=== PATIENT | female | born 1945 | race Caucasian/White ===

== ENCOUNTER → 2017-02-07 | Outpatient (CLI) | payer BC ==
[~2017-02-07] MED LIST: ASPI81TA28 PO; ATOR-24 PO; CALCTAB5 PO; CHOL100010 PO; GLUC10007 PO; HYDR25TA5 PO; LOSA50TA6 PO; MULT-506 PO; OMEG10007 PO
--- NOTE | 2017-02-07 14:02 | MAMMOGRAPHY REPORT ---
BILATERAL DIGITAL SCREENING MAMMOGRAM WITH CAD: 02/07/2017 CLINICAL HISTORY: Routine screening. Patient has no complaints. TECHNIQUE: Current study was also evaluated with a Computer Aided Detection (CAD) system. Bilateral CC and MLO views were obtained. COMPARISON: Comparison is made to exams dated: 02/02/2016 mammogram, 01/27/2015 mammogram, 01/25/2014 ma mmogram, 01/21/2013 mammogram, 01/21/2012 mammogram, and 01/17/2011 mammogram - [facility] nter. BREAST COMPOSITION: The tissue of both breasts is heterogeneously dense, which may obscure small mas ses. FINDINGS: There are possible increasing grouped calcifications in the right superior breast at appro ximately 12:00 posteriorly, for which spot magnification views are recommended for further evaluation . The remainder of both breasts are stable compared to prior exams, without suspicious masses, calcific ations, or areas of architectural distortion noted. Other grouped benign-appearing calcifications in the right 6:00 breast are stable compared to prior exams. IMPRESSION: ACR BI-RADS CATEGORY 0: INCOMPLETE EVALUATION: NEED ADDITIONAL IMAGING EVALUATION Right 12:00 breast calcifications, for which additional imaging evaluation is recommended. The patie nt will be called to schedule an appointment. Approximately 10% of breast cancers are not detected with mammography. A negative mammographic report should not delay biopsy if a clinically suggestive mass is present. Saida Hardin M.D. /:02/07/2017 09:31:11 Fingerer: Sandra Main, [facility] letter sent: Addl Imaging 0 BI-RADS Code: ACR BI-RADS Category 0: Incomplete Evaluation: Need Additional Imaging Evaluation
== END | disposition home or self-care (01) ==
LOC: C.MAMM 08:54
PROVIDERS: ATTEND Obstetrics & Gynecology
DX: Z12.31 Encounter for screening mammogram for malignant neoplasm of breast (principal)

== ENCOUNTER → 2017-02-14 | Outpatient (CLI) | payer BC ==
--- NOTE | 2017-02-14 14:07 | MAMMOGRAPHY REPORT ---
UNILATERAL RIGHT DIGITAL DIAGNOSTIC MAMMOGRAM: 02/14/2017 CLINICAL HISTORY: Callback from screening mammogram for right breast calcifications. TECHNIQUE: Spot magnification right cc and ML views were obtained. COMPARISON: Comparison is made to exams dated: 02/07/2017 mammogram, 02/02/2016 mammogram, 01/27/2015 ma mmogram, 01/25/2014 mammogram, 01/21/2013 mammogram, and 01/21/2012 mammogram - [facility] nter. BREAST COMPOSITION: The tissue of the right breast is heterogeneously dense, which may obscure small masses. FINDINGS: There is a small 4 mm cluster of faint punctate and amorphous calcifications in the right 12:00 breast, which appears increased compared to prior exams. Given the interval increase, the calc ifications are indeterminate and stereotactic biopsy is recommended for further evaluation. Additionally, there is a small 3 mm cluster of calcifications in the right central/6:00 breast, which is likely not significantly changed compared to prior exams when accounting for differences in mammo graphic technique, with calcifications seen in this region dating back to at least 2008 and 2009 exam s. Another small very faint 4 mm cluster of calcifications is seen within the right 6:00 breast post eriorly, which is likely also not significantly changed although more conspicuous on the current spot magnification views. Pending benign pathology results of right breast stereotactic biopsy, these 2 clusters can be followed in 6 months. IMPRESSION: ACR BI-RADS CATEGORY 4: SUSPICIOUS 1. Small 4 mm cluster of calcifications in the right 12:00 breast is increased compared to prior exa ms and is therefore indeterminate. Stereotactic biopsy is recommended for further evaluation. 2. Two other small clusters of calcifications in the right central/6:00 breast are likely stable comp ared to prior exams and are probably benign. Pending benign pathology results of the stereotactic bi opsy, recommend follow-up diagnostic mammograms of the right breast in 6 months to confirm stability of the other clustered calcifications on spot magnification views. A phone call was made to the physician's office to confirm faxed results were received. The patient has been verbally notified of the results. She tentatively scheduled the biopsy before leaving the [facility]. Approximately 10% of breast cancers are not detected with mammography. A negative mammographic report should not delay biopsy if a clinically suggestive mass is present. Saida Hardin M.D. /:02/14/2017 09:26:50 [employer] Supervisor: Sandra Boswell RT(R)(M), [facility] letter sent: Abnormal 4/5 BI-RADS Code: ACR BI-RADS Category 4: Suspicious
== END | disposition home or self-care (01) ==
LOC: C.MAMM 08:54
PROVIDERS: ATTEND Obstetrics & Gynecology
DX: R92.1 Mammographic calcification found on diagnostic imaging of breast (principal)

== ENCOUNTER → 2017-02-22 | Outpatient (CLI) | payer BC ==
--- NOTE | 2017-02-22 13:22 | Discharge Instructions ---
Discharge Instructions Procedure Procedure Date: Feb 22, 2017. Reason for visit: Right Calcifications. Discharge Discharge Date: Feb 22, 2017. Discharge Diagnosis: status post breast biopsy Instructions Activity Recommendations: Additional Limitations (see below) Return to School/Work: no limitations Recommended Home Diet: No Limitations Provider Instructions: ACTIVITY RECOMMENDATIONS: * No lifting, pushing, pulling or exercising the affected side for three days. RETURN TO SCHOOL/WORK: * You may return to work/school after the procedure, but do not perform any strenuous activities for 24 to 48 hours. MEDICATIONS: * Tylenol (two 325 mg) every four to six hours if needed for mild pain (if not allergic to Tylenol). DIET: * Resume previous diet. SPECIAL CARE INSTRUCTIONS: * Keep biopsy site dry for 24 hours. May shower after 24 hours, but do not soak (bathe) incision. * May remove Tegaderm (plastic patch) tomorrow AFTER showering. * Leave the steri-strips on for one week. Allow the steri-strips to fall off by themselves. If not off after one week, you may remove them. You may place a Bandaid crosswise over the strips, if desired. * Apply ice 10 minutes on and 10 minutes off as needed. * Wear a bra at bedtime to sleep more comfortably for 2-3 days. * Your referring physician should have the results after approximately 5 to 7 business days. * Call for unusual bleeding, fever, drainage, etc or if you have any questions call during normal business hours or after hours call Dr Hardin, [phone]. FOLLOW UP VISIT: Follow-up with Referring Physician as scheduled. Allergies Coded Allergies: Simvastatin (Verified Allergy, Intermediate, ., 08/10/13) COUGH AND TICKLE IN THROAT Lisinopril (Verified Allergy, Unknown, ., 09/07/14) COUGH AND TICKLE IN THROAT [place] Recommendations: Call your doctor if: * Temperature above 101 degrees * Pain not relieved by pain medicine ordered * There is increased drainage or redness from any incision * You have any unanswered questions or concerns. Your Doctors Instructions noted above were prepared by provider Saida Hardin. Patient Signature Section: Patient Instructions Signature Page Rama Antonio Patient (or Guardian) Signature/Date: I have read and understand the instructions given to me by my caregivers. Caregiver/RN/Doctor Signature/Date: The above-named patient and/or guardian has received patient instructions on this date. + Original Patient Signature Page (only) stays with chart. Please make copy for patient.
--- NOTE | 2017-02-22 13:36 | MAMMOGRAPHY REPORT ---
THIS REPORT HAS BEEN AMENDED. STEREOTACTIC GUIDED BIOPSY RIGHT BREAST: 02/22/2017 CLINICAL HISTORY: Indeterminate calcifications in the right 12 o'clock breast. PATIENT CONSENT: The procedure, risks, benefits, and alternatives of stereotactic biopsy with clip pl acement were discussed with the patient, and verbal and written consent was obtained. A timeout was performed immediately prior to the procedure. PROCEDURE DESCRIPTION: With stereotactic guidance, aseptic technique, and lidocaine as a local anesth etic (1% lidocaine to anesthetize the skin and 1% lidocaine with epinephrine to anesthetize the deepe r tissues), the area of concern was sampled multiple times with a 9-gauge vacuum-assisted biopsy need le (Suros Eviva petite). The path of approach was lateral. The specimen radiograph demonstrates a f ew calcifications to be present in the samples; the samples containing calcifications (labeled "A") w ere from the samples without calcifications (labeled "B "). A metallic marker clip was betsey travis at the biopsy site. This was confirmed on postprocedure mammograms. Direct pressure was applied at the biopsy site and hemostasis was readily achieved. The patient tolerated the procedure without complication. She was given wound care instructions. COMPARISON: Comparison is made to exams dated: 02/14/2017 mammogram, 02/02/2016 mammogram, 01/25/2014 ma mmogram, 01/21/2013 mammogram, 01/21/2012 mammogram, and 02/07/2017 mammogram - [facility] nter. IMPRESSION: STEREOTACTIC GUIDED BIOPSY Stereotactic biopsy of indeterminate calcifications in the right 12:00 breast, with clip placement. The patient will receive pathology results from her referring provider. Pending benign pathology res ults, recommend follow-up diagnostic mammograms of the right breast in 6 months to evaluate other clu sters of calcifications. Saida Hardin M.D. ah/:02/22/2017 13:25:13 Vc++ Developer: Rama AMIN)(Madan), [facility] AMENDMENT: 02/27/2017 Saida Hardin M.D. Pathology results from right breast stereotactic biopsy were reviewed on 02/27/2017. 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 The pathology is concordant with the imaging findings. Given the pr esence of atypia, surgical excision is recommended. Additionally, 2 other clusters of calcifications were seen within the right central and 6:00 breast. Given the new diagnosis of atypia, sampling of the other 2 clusters is recommended, either with stereotactic biopsy or surgical excision (at the shannan e of surgery for the right 12:00 calcifications). Further recommendations were discussed with Dr. Ramirez's nurse on 02/27/2017.
--- NOTE | 2017-02-22 16:09 | MAMMOGRAPHY REPORT ---
UNILATERAL RIGHT DIGITAL DIAGNOSTIC MAMMOGRAM: 02/22/2017 CLINICAL HISTORY: Status post right breast stereotactic biopsy. TECHNIQUE: Right CC, ML, and LM views were obtained. COMPARISON: Comparison is made to exams dated: 02/14/2017 mammogram, 02/07/2017 mammogram, 02/02/2016 ma mmogram, 01/25/2014 mammogram, 01/27/2015 mammogram, and 01/21/2013 mammogram - [facility] nter. BREAST COMPOSITION: The tissue of the right breast is heterogeneously dense, which may obscure small masses. FINDINGS: A right LM view was obtained for biopsy planning purposes. Postprocedural right ML and cc views were obtained, which shows a new biopsy marker clip in the right breast status post stereotact ic biopsy of right breast calcifications. There is lateral migration of the biopsy marker clip from the biopsy site approximately 3 cm, likely due to accordion effect. No residual calcifications are s een at the biopsy site. No significant postbiopsy hematoma is seen. IMPRESSION: POST PROCEDURE IMAGING FOR MARKER PLACEMENT New biopsy marker clip status post right breast stereotactic biopsy. Pathology results are pending. Approximately 10% of breast cancers are not detected with mammography. A negative mammographic report should not delay biopsy if a clinically suggestive mass is present. Saida Hardin M.D. /:02/22/2017 13:34:21 [employer] Professor: Rama AMIN)(M), [facility] BI-RADS Code: Post Procedure Imaging For Marker Placement
== END | disposition home or self-care (01) ==
LOC: C.MAMM 12:24
PROVIDERS: ATTEND Obstetrics & Gynecology
DX: R92.0 Mammographic microcalcification found on diagnostic imaging of breast (principal); D24.1 Benign neoplasm of right breast; N60.81 Other benign mammary dysplasias of right breast; N60.21 Fibroadenosis of right breast

== ENCOUNTER → 2017-03-25 | Outpatient (CLI) | payer BC | END | disposition home or self-care (01) | LOC: C.PAPS 11:21 | PROVIDERS: ATTEND Obstetrics & Gynecology | DX: Z01.419 Encounter for gynecological examination (general) (routine) without abnormal findings (principal) ==

== ENCOUNTER 2024-12-12 06:24 | Observation (INO) ==
--- NOTE | 2024-12-12 06:58 | Emergency Department Note ---
Impression & Plan Dyspnea, Hypoxia ED Provider Note ED Provider Note NAME: BELTRAN HARTLEY AGE:79 SEX: Female : 1945 ARRIVES VIA: EMS INFORMANT: Patient ED PROVIDER(s): Lauren Valladares DO CHIEF COMPLAINT: Shortness of breath HPI: This is an 79-year-old female who presents emergency department due to shortness of breath. Patient states she gets up overnight to urinate and by the third episode early this morning she was very winded. She states she felt fine the last few days. No recent cough or cold symptoms. She denies fevers or chills, chest pain or pressure, or prior history of similar episodes. She denies asthma, COPD, or prior tobacco abuse. She states no recent leg swelling. No recent change in bowel or bladder function. She does admit to intermittent constipation. She states no cough. No known sick contacts. No recent travel. She states her breathing feels worse with exertion. PAST MEDICAL HISTORY:See Below PAST SURGICAL HISTORY:See Below FAMILY HISTORY:See Below SOCIAL HISTORY:See Below HOME MEDICATIONS:See Below ALLERGIES:See Below VITALS:See Below PHYSICAL EXAMINATION: GENERAL: alert, well appearing, well nourished, no distress, non-toxic EYE EXAM: normal conjunctiva, PERRL and EOM's grossly intact OROPHARYNX: no exudate, no erythema, lips, buccal mucosa, and tongue normal and mucous membranes are moist NECK: supple, no nuchal rigidity, no adenopathy, non-tender LUNGS: Clear to auscultation. Normal chest wall mechanics, no w/r/r HEART: no murmurs, S1 normal and S2 normal ABDOMEN: abdomen soft, non-tender, normo-active bowel sounds, no masses, no rebound or guarding. BACK: Back is symmetrical on inspection and there is no deformity, no midline tenderness, no CVA tenderness. SKIN: no rashes, petechiae, orbruising UPPER EXTREMITIES: upper extremities are grossly normal. FROM, nml pulses b/l. LOWER EXTREMITIES: No pitting edema. FROM, nml pulses b/l. NEURO EXAM: Normal sensorium, cranial nerves II-XII grossly intact, normal speech, no facial droop,nogross weakness of arms, no gross weakness of legs. Gross sensation intact. No ataxia. Vital Signs: reviewed and remarkable Differential Diagnosis: pneumonia, bronchitis, COPD/Asthma exacerbation, pneumothorax, pulmonary embolism, congestive heart failure, acute coronary syndrome, as well as others were considered MEDICAL DECISION MAKING: This is a 79-year-old female who presents emergency department due to concern for shortness of breath. Patient was noted to be hypoxic on arrival on room air at 88%, other vital signs reassuring. Labs drawn and sent, IV established, EKG and CXR performed and interpreted at bedside, and patient placed on telemetry. Patient noted to have a leukocytosis, nasal swab added for viral respiratory panel additionally. Patient noted to have an elevated D-dimer and an additional CT of the chest was added. CT without evidence of PE, pneumonia, pericardial effusion, or obvious pulmonary edema. Patient continued to report dyspnea with any movement and even prolonged conversation and was easily tachypneic. Viral panel negative. No prior cardiac history or pulmonary history. Given unclear etiology of symptoms we discussed the need for further testing. Case discussed with the hospitalist team for additional evaluation and management. Consultation(s): 1002: Discussed with Dr. Ascencio, Ms hospitalist team, for additional evaluation and mgmt. ER Treatment Provided: See below Diagnostics Interpreted By Me: -ECG: Normal sinus at 93, leftward axis, normal intervals, nonspecific ST/T wave changes -Cardiac Monitoring: An order was placed for continuous cardiac monitoring. The monitor shows a rate of 88 with normal sinus rhythm. -Laboratory studies: As stated above and show below. -Imaging studies: X-ray Chest: A single view study of the chest was reviewed and was negative for cardiomegaly, focal infiltrate, effusion, pulmonary edema, or wide mediastinum. Triage Nursing Note Reviewed Prior/Outside Records Reviewed Past Med/Surg History Problem List (Updated 12/13/24 @ 09:59 by Mahogany Ascencio MD) Mitral regurgitation Diastolic heart failure Hypoxia (Acute) Dyspnea (Acute) Nocturia History of breast cancer 2016 Overactive bladder Carpal tunnel syndrome (Acute) Diastolic dysfunction (Acute) Mild aortic sclerosis (Acute) Mitral valve prolapse (Acute) Scoliosis (Acute) JIMBO (acute kidney injury) (Acute) Chest pain (Acute) HTN (hypertension) (Chronic) Medical History History of uterine leiomyoma Osteoarthritis Osteopenia GERD (gastroesophageal reflux disease) History of melanoma Cardiac murmur Hypertension Hyperlipidemia Basal cell carcinoma Surgical History Status post repair of complex wound (~08/2018) right nasal ala wound primary closure- Dr. Nguyen History of cataract surgery History of anesthesia reaction "hyperactive" after colonoscopy History of tonsillectomy History of adenoidectomy Hx of lumpectomy RT, 2016 History of breast biopsy RT History of colonoscopy History of basal cell carcinoma (BCC) excision FACE/BACK History of melanoma excision UPPER ARM Family History Sister Family history of reaction to anesthesia hallucinations Mother Alzheimer disease Family/Other Breast cancer Ovarian cancer Father Coronary heart disease Myocardial infarction Denies family history of Prostate cancer Colorectal cancer Social History Smoking Status: Never smoker Second Hand Exposure: Yes (previous exposure in the workplace); Do You Dip or Chew Tobacco: No; Hx Alcohol Use: Yes Alcohol type: wine Hx Substance Use: No Preferred Language: Armenian Communication Ability: Effective [employer] Worker Required: No Beliefs That Will Affect Care: None Current Living Situation: Alone Current Living Situation Comment: Her own home (1 story) current occupational status: retired Feels Safe at Home: Yes Safety Concerns: Feels Safe At This Time caffeine: Yes Dental Care, Regularly: Yes Seatbelt Use: always Sunscreen Use: Yes Assistive Devices: Glasses Allergies Allergies Allergy/AdvReac Type Severity Reaction Status Date / Time simvastatin Allergy Intermediate TICKLING Verified 12/12/24 08:10 THROAT lisinopril Allergy Unknown TICKLY Verified 12/12/24 08:10 THROAT Home Meds Home Medications Medication Instructions Recorded Confirmed amlodipine 5 mg tablet 5 mg PO QPM 08/12/18 12/12/24 atorvastatin 40 mg tablet 20 mg PO QPM 08/12/18 12/12/24 olmesartan 40 mg tablet 40 mg PO DAILY 11/01/22 12/12/24 calcium carbonate 500 mg PO DAILY 12/12/24 12/12/24 cholecalciferol (vitamin D3) 25 25 mcg PO DAILY 12/12/24 12/12/24 mcg (1,000 unit) tablet (Vitamin D3) multivitamin 1 tab PO DAILY 12/12/24 12/12/24 omega [id number] oil 1,200 mg 1 cap PO DAILY 12/12/24 12/12/24 (144 mg-216 mg) capsule (Fish Oil) Previous Rx's Medication Instructions Recorded vibegron 75 mg tablet (Gemtesa) 75 mg PO DAILY #90 tabs 12/11/24 furosemide 20 mg tablet See Rx Instructions .Route 12/13/24 .COMPLEX #60 tabs potassium chloride 20 mEq oral See Rx Instructions .Route 12/13/24 packet .COMPLEX #60 ea Results & Data (ED) Vital Signs Vital Signs - 24 hr 12/12/24 06:28 12/12/24 06:28 12/12/24 06:30 Temperature 36.4 C L Temperature Source Oral Pulse Rate 90 99 H Pulse Rate from SpO2 Sensor Respiratory Rate 30 H Blood Pressure 155/112 H Blood Pressure Mean 126 Pulse Oximetry 88 L 88 L Oxygen Delivery Method Room Air Oxygen Flow Rate 0 Sepsis Recent Fever Within 48 Hours No Sepsis New/Unexplained Change in Mental Status N/A Sepsis Action Taken by Nursing No Action Required Oxygen Flow Rate - Titration 3 Pulse Oximetry Post Tiitration 93 12/12/24 07:00 12/12/24 07:30 12/12/24 08:00 Temperature Temperature Source Pulse Rate 89 89 Pulse Rate from SpO2 Sensor 88 Respiratory Rate 24 26 H Blood Pressure 139/80 110/81 127/76 Blood Pressure Mean 117 92 93 Pulse Oximetry 94 96 Oxygen Delivery Method Nasal Cannula Nasal Cannula Oxygen Flow Rate 3 3 Sepsis Recent Fever Within 48 Hours Sepsis New/Unexplained Change in Mental Status Sepsis Action Taken by Nursing Oxygen Flow Rate - Titration Pulse Oximetry Post Tiitration 12/12/24 09:03 12/12/24 09:30 Temperature Temperature Source Pulse Rate 84 87 Pulse Rate from SpO2 Sensor 83 89 Respiratory Rate 26 H 28 H Blood Pressure 115/72 111/70 Blood Pressure Mean 86 83 Pulse Oximetry 96 96 Oxygen Delivery Method Nasal Cannula Nasal Cannula Oxygen Flow Rate 3 3 Sepsis Recent Fever Within 48 Hours Sepsis New/Unexplained Change in Mental Status Sepsis Action Taken by Nursing Oxygen Flow Rate - Titration Pulse Oximetry Post Tiitration Laboratory Data 12/13/24 05:45 12/13/24 05:45 Lab Results 12/12/24 12/12/24 12/12/24 Range/Units 06: 06: 07:12 WBC 16.45 H (4.8-10.8) K/ul RBC 4.55 (4.20-5.40) M/uL Hgb 14.0 (12.0-16.0) g/dl Hct 41.5 (37.0-47.0) % MCV 91.2 (80.0-100.0) fL MCH 30.8 (25.0-34.0) pg MCHC 33.7 (32.0-36.0) g/dL RDW Std Deviation 43.8 (36.4-46.3) fL RDW Coeff of Gilma 13.0 (11.5-14.5) % Plt Count 242 (130-400) K/uL MPV 10.8 (9.4-12.4) fL Immature Gran % (Auto) 0.4 % Neut % (Auto) 75.3 % Lymph % (Auto) 16.8 % [place] % (Auto) 4.9 % Eos % (Auto) 2.1 % Baso % (Auto) 0.5 % Neut # (Auto) 12.38 H (1.40-6.50) K/uL Lymph # (Auto) 2.77 (1.20-3.40) K/uL [place] # (Auto) 0.80 H (0.11-0.59) K/uL Eos # (Auto) 0.35 (0.00-0.50) K/uL Baso # (Auto) 0.09 (0.00-0.20) K/uL Immature Gran # (Auto) 0.06 (0.01-0.20) K/uL PT 10.4 (9.0-12.0) Seconds INR 1.0 (0.9-1.1) D-Dimer 1460 H* Cancelled (0-500) ug/L FEU Sodium 140 (136-145) mmol/L Potassium 3.6 (3.5-5.1) mmol/L Chloride 106 (98-107) mmol/L Carbon Dioxide 27 (21-32) mmol/L Anion Gap 7 (3-11) BUN 28 H (6-23) mg/dl Creatinine 0.82 (0.6-1.2) mg/dl Est Cr Clr Drug Dosing 44.5 ml/min eGFR 71.82 BUN/Creatinine Ratio 34.1 H (10-20) Glucose 106 H (70-99(Fasting)) mg/dl Calcium 9.3 (8.6-10.3) mg/dl Magnesium 1.9 (1.7-2.4) mg/dl Total Bilirubin 0.7 (0.2-1.0) mg/dl AST 30 (13-39) U/L ALT 23 (7-52) U/L Alkaline Phosphatase 55 (34-104) U/L Troponin I High Sens 4.1 (0-14) pg/ml Total Protein 6.6 (6.0-8.3) gm/dl Albumin 4.4 (3.4-5.0) gm/dl Globulin 2.2 L (2.5-4.0) gm/dl Albumin/Globulin Ratio 2.0 (0.9-2) Lipase 86 H (11-82) U/L Procalcitonin < 0.02 (0-0.5) ng/ml TSH 4.802 H (0.300-4.500) uIu/ml Free T4 0.84 (0.61-1.60) ng/dl Urine Color Urine Appearance (Clear) Urine pH (4.5-7.5) Ur Specific [place] (1.000-1.030) Urine Protein (Negative) Urine Glucose (UA) (Negative) Urine Ketones (Negative) Urine Blood (Negative) Urine Nitrite (Negative) Urine Bilirubin (Negative) Urine Urobilinogen (Negative) Ur Leukocyte Esterase (Negative) Urine WBC (Auto) (0-5) /hpf Urine RBC (Auto) (0-2) /hpf U Hyaline Cast (Auto) (0-2) /lpf U Epithel Cells (Auto) (0-2) /hpf Urine Bacteria (Auto) (None Seen) Urine Comment Adenovirus (PCR) Not Detected (NotDetected) B. pertussis DNA (PCR) Not Detected (NotDetected) B.parapertussis DNA PCR Not Detected (NotDetected) C. pneumoniae DNA (PCR) Not Detected (NotDetected) Coronavirus OC43 (PCR) Not Detected (NotDetected) Coronavirus HKU1 (PCR) Not Detected (NotDetected) Coronavirus 229E (PCR) Not Detected (NotDetected) SARS-CoV-2 (PCR) Not Detected (NotDetected) Coronavirus NL63 (PCR) Not Detected (NotDetected) Human Metapneumovir PCR Not Detected (NotDetected) Influenza Type A (PCR) Not Detected (NotDetected) Influenza Type B (PCR) Not Detected (NotDetected) M. pneumoniae (PCR) Not Detected (NotDetected) Parainfluenza 1 (PCR) Not Detected (NotDetected) Parainfluenza 2 (PCR) Not Detected (NotDetected) Parainfluenza 3 (PCR) Not Detected (NotDetected) Parainfluenza 4 (PCR) Not Detected (NotDetected) RSV (PCR) Not Detected (NotDetected) Entero/Rhino (PCR) Not Detected (NotDetected) 12/12/24 Range/Units 07:40 WBC (4.8-10.8) K/ul RBC (4.20-5.40) M/uL Hgb (12.0-16.0) g/dl Hct (37.0-47.0) % MCV (80.0-100.0) fL MCH (25.0-34.0) pg MCHC (32.0-36.0) g/dL RDW Std Deviation (36.4-46.3) fL RDW Coeff of Gilma (11.5-14.5) % Plt Count (130-400) K/uL MPV (9.4-12.4) fL Immature Gran % (Auto) % Neut % (Auto) % Lymph % (Auto) % [place] % (Auto) % Eos % (Auto) % Baso % (Auto) % Neut # (Auto) (1.40-6.50) K/uL Lymph # (Auto) (1.20-3.40) K/uL [place] # (Auto) (0.11-0.59) K/uL Eos # (Auto) (0.00-0.50) K/uL Baso # (Auto) (0.00-0.20) K/uL Immature Gran # (Auto) (0.01-0.20) K/uL PT (9.0-12.0) Seconds INR (0.9-1.1) D-Dimer (0-500) ug/L FEU Sodium (136-145) mmol/L Potassium (3.5-5.1) mmol/L Chloride (98-107) mmol/L Carbon Dioxide (21-32) mmol/L Anion Gap (3-11) BUN (6-23) mg/dl Creatinine (0.6-1.2) mg/dl Est Cr Clr Drug Dosing ml/min eGFR BUN/Creatinine Ratio (10-20) Glucose (70-99(Fasting)) mg/dl Calcium (8.6-10.3) mg/dl Magnesium (1.7-2.4) mg/dl Total Bilirubin (0.2-1.0) mg/dl AST (13-39) U/L ALT (7-52) U/L Alkaline Phosphatase (34-104) U/L Troponin I High Sens (0-14) pg/ml Total Protein (6.0-8.3) gm/dl Albumin (3.4-5.0) gm/dl Globulin (2.5-4.0) gm/dl Albumin/Globulin Ratio (0.9-2) Lipase (11-82) U/L Procalcitonin (0-0.5) ng/ml TSH (0.300-4.500) uIu/ml Free T4 (0.61-1.60) ng/dl Urine Color Yellow Urine Appearance Turbid A (Clear) Urine pH 8.0 H (4.5-7.5) Ur Specific [place] 1.011 (1.000-1.030) Urine Protein Negative (Negative) Urine Glucose (UA) Negative (Negative) Urine Ketones Negative (Negative) Urine Blood Negative (Negative) Urine Nitrite Negative (Negative) Urine Bilirubin Negative (Negative) Urine Urobilinogen Negative (Negative) Ur Leukocyte Esterase Negative (Negative) Urine WBC (Auto) 0-5 (0-5) /hpf Urine RBC (Auto) 0-2 (0-2) /hpf U Hyaline Cast (Auto) 0-2 (0-2) /lpf U Epithel Cells (Auto) 0-2 (0-2) /hpf Urine Bacteria (Auto) None Seen (None Seen) Urine Comment Adenovirus (PCR) (NotDetected) B. pertussis DNA (PCR) (NotDetected) B.parapertussis DNA PCR (NotDetected) C. pneumoniae DNA (PCR) (NotDetected) Coronavirus OC43 (PCR) (NotDetected) Coronavirus HKU1 (PCR) (NotDetected) Coronavirus 229E (PCR) (NotDetected) SARS-CoV-2 (PCR) (NotDetected) Coronavirus NL63 (PCR) (NotDetected) Human Metapneumovir PCR (NotDetected) Influenza Type A (PCR) (NotDetected) Influenza Type B (PCR) (NotDetected) M. pneumoniae (PCR) (NotDetected) Parainfluenza 1 (PCR) (NotDetected) Parainfluenza 2 (PCR) (NotDetected) Parainfluenza 3 (PCR) (NotDetected) Parainfluenza 4 (PCR) (NotDetected) RSV (PCR) (NotDetected) Entero/Rhino (PCR) (NotDetected) Administered Medications Acetaminophen (Acetaminophen 325 Mg Tab) 650 mg PO Q4H PRN PRN Reason: pain/fever Stop: 01/11/25 12:42 Last Admin: 12/13/24 08:46 Dose: 650 mg Documented By: DAVID Amlodipine Besylate (Amlodipine Besylate 5 Mg Tab) 5 mg PO QPM ALLIE Stop: 01/11/25 20:59 Last Admin: 12/12/24 20:37 Dose: 5 mg Documented By: LAURA Atorvastatin Calcium (Atorvastatin 20 Mg Tab) 20 mg PO QPM ALLIE Stop: 01/11/25 20:59 Last Admin: 12/12/24 20:37 Dose: 20 mg Documented By: LAURA Losartan Potassium (Losartan Potassium 50 Mg Tab) 100 mg PO DAILY ALLIE Stop: 01/12/25 08:59 Last Admin: 12/13/24 08:47 Dose: 100 mg Documented By: DAVID Vibegron (Vibegron 75 Mg Tab) 75 mg PO DAILY ALLIE Stop: 01/12/25 08:59 Last Admin: 12/13/24 08:47 Dose: 75 mg Documented By: DAVID Discontinued Medications Apixaban (Apixaban 5 Mg Tablet) 10 mg PO BID ALILE Stop: 12/18/24 21:01 Last Admin: 12/13/24 08:47 Dose: 10 mg Documented By: Admin: 12/12/24 20:37 Dose: 10 mg Documented By: Admin: 12/12/24 14:37 Dose: 10 mg Documented By: RRR Furosemide (Furosemide Inj 20 Mg/2 Ml Vial) 20 mg IV ONE ONE Stop: 12/12/24 15:14 Last Admin: 12/12/24 15:46 Dose: 20 mg Documented By: RRR Furosemide (Furosemide Inj 20 Mg/2 Ml Vial) 20 mg IV ONE ONE Stop: 12/13/24 07:26 Last Admin: 12/13/24 08:46 Dose: 20 mg Documented By: [facility] Ioversol (Optiray 320 125ml) 112 ml IV ONCE ONE Stop: 12/12/24 07:35 Last Admin: 12/12/24 07:35 Dose: 112 ml Documented By: BRISEIDA Potassium Chloride (Potassium Chloride Crtab 20 Meq Tabcr) 40 meq PO NOW ONE Stop: 12/12/24 15:14 Last Admin: 12/12/24 15:46 Dose: 40 meq Documented By: RRR Potassium Chloride (Potassium Chloride Crtab 20 Meq Tabcr) 40 meq PO NOW ONE Stop: 12/13/24 07:27 Last Admin: 12/13/24 08:46 Dose: 40 meq Documented By: [facility] Imaging Data Radiologist's Impression: Chest X-Ray 12/12/24 06:49 EXAM: XR chest 1V portable CLINICAL HISTORY: sob. TECHNIQUE: Radiograph of chest was acquired. COMPARISON: None. FINDINGS: Right diaphragmatic hump Cardiomegaly noted. The lungs are clear and well-expanded with no pulmonary infiltrate or pleural effusion. No acute osseous abnormality. IMPRESSION: Right diaphragmatic hump Cardiomegaly noted. Electronically signed by Sanford Gallagher 12-12-2024 08:09 AM Chest CTA 12/12/24 07:25 Technique: Axial computed tomography images were obtained of the chest after the administration of intravenous contrast according to the CT angiogram protocol Findings: There is no definite sign of pulmonary embolism. There is mild atelectasis or scar along the right minor fissure and within the lingula. The lungs otherwise appear clear without infiltrate or mass. There is no pleural effusion or pneumothorax. There is no sign of pulmonary fibrosis or other diffuse interstitial process. No endobronchial lesion is seen There is no mediastinal, hilar, or axillary adenopathy. The thoracic aorta appears unremarkable with no sign of aneurysm or dissection. There is no pericardial effusion The visualized upper abdomen appears unremarkable. No fracture is seen. No focal osseous lesion is evident Impression: 1. No definite sign of pulmonary embolism 2. Essentially normal-appearing lungs ACT 112: Positive. There are findings on this exam that require communication between the performing entity and the patient following Patient Test Result Information Act ([place] ACT 112) guidelines. Electronically signed by Bolivar Cruz 12-12-2024 08:37 AM Discharge Plan Visit Data Chief Complaint: Shortness of Breath/Dyspnea Stated Complaint: SOB ED Provider: Lauren Valladares Discharge Problem: Dyspnea, Hypoxia Patient Disposition: Admitted As Inpatient Condition: Fair Discharge Instructions Interventions: ED Discharge Assessment Last Done: 12/12/24 11:59
[2024-12-12 07:01] LABS: Basophils # (auto) 0.09 K/uL (0.00-0.20); Basophils % (auto) 0.5 %; Eosinophils # (auto) 0.35 K/uL (0.00-0.50); Eosinophils % (auto) 2.1 %; Hematocrit (blood only) 41.5 % (37.0-47.0); Immature Granulocytes # (auto) 0.06 K/uL (0.01-0.20); Immature Granulocytes % (auto) 0.4 %; Lymphocytes # (auto) 2.77 K/uL (1.20-3.40); Lymphocytes % (auto) 16.8 %; Mean Corpuscular Hemoglobin 30.8 pg (25.0-34.0); Mean Corpuscular Hgb Conc 33.7 g/dL (32.0-36.0); Mean Corpuscular Volume 91.2 fL (80.0-100.0); Mean Platelet Volume 10.8 fL (9.4-12.4); Monocytes % (auto) 4.9 %; Neutrophils # (auto) 12.38 K/uL (1.40-6.50); Neutrophils % (auto) 75.3 %; Platelet Count 242 K/uL (130-400); RDW Standard Deviation 43.8 fL (36.4-46.3); Red Blood Count 4.55 M/uL (4.20-5.40); White Blood Count 16.45 K/ul (4.8-10.8)
[2024-12-12 07:20] LABS: Prothrombin Time 10.4 Seconds (9.0-12.0)
[2024-12-12 07:26] LABS: Albumin Level 4.4 gm/dl (3.4-5.0); BUN Creatinine Ratio 34.1 (10-20); Bilirubin,Total 0.7 mg/dl (0.2-1.0); Calcium 9.3 mg/dl (8.6-10.3); Creatinine Clr Calc Pharmacy 44.5 ml/min; Globulin 2.2 gm/dl (2.5-4.0); Magnesium 1.9 mg/dl (1.7-2.4); Potassium 3.6 mmol/L (3.5-5.1); Total Protein 6.6 gm/dl (6.0-8.3)
[2024-12-12 07:29] LABS: D Dimer 1460 ug/L FEU (0-500)
[2024-12-12 07:31] LABS: Troponin I High Sensitivity 4.1 pg/ml (0-14)
[2024-12-12] MEDS: OPTIRAY 320 125ml IV ONE (07:35)
[2024-12-12 07:40] LABS: Thyroid Stimulating Hormone 4.802 uIu/ml (0.300-4.500)
[2024-12-12 08:07] LABS: Appearance Urine Turbid (Clear); Bacteria Urine Automated None Seen (None Seen); Bilirubin Urine Negative (Negative); Blood Urine Negative (Negative); Cast Urine Automated 0-2 /lpf (0-2); Color Urine Yellow; Epithelial Cell Urine Auto 0-2 /hpf (0-2); Glucose Urine UA Negative (Negative); Ketones Urine Negative (Negative); Leukocyte Esterase Urine Negative (Negative); Nitrite Urine Negative (Negative); Protein Urine Negative (Negative); RBC Urine Automated 0-2 /hpf (0-2); Specific Gravity Urine 1.011 (1.000-1.030); Urobilinogen Urine Negative (Negative); WBC Urine Automated 0-5 /hpf (0-5)
--- NOTE | 2024-12-12 08:09 | XRay Report ---
EXAM: XR chest 1V portable CLINICAL HISTORY: sob. TECHNIQUE: Radiograph of chest was acquired. COMPARISON: None. FINDINGS: Right diaphragmatic hump Cardiomegaly noted. The lungs are clear and well-expanded with no pulmonary infiltrate or pleural effusion. No acute osseous abnormality. IMPRESSION: Right diaphragmatic hump Cardiomegaly noted. Electronically signed by Sanford Gallagher 12-12-2024 08:09 AM
[2024-12-12 08:16] LABS: T4 Free Thyroxine 0.84 ng/dl (0.61-1.60)
[2024-12-12 08:19] LABS: Adenovirus PCR Not Detected (NotDetected); Bordetella parapertussis PCR Not Detected (NotDetected); Bordetella pertussis PCR Not Detected (NotDetected); Chlamydia pneumoniae PCR Not Detected (NotDetected); Coronavirus 229E PCR Not Detected (NotDetected); Coronavirus CoV-2 (COVID19)PCR Not Detected (NotDetected); Coronavirus HKU1 PCR Not Detected (NotDetected); Coronavirus NL63 PCR Not Detected (NotDetected); Coronavirus OC43PCR Not Detected (NotDetected); Human Metapneumovirus PCR Not Detected (NotDetected); Influenza A PCR Not Detected (NotDetected); Influenza B PCR Not Detected (NotDetected); Mycoplasma pneumoniae PCR Not Detected (NotDetected); Parainfluenza Virus 1 PCR Not Detected (NotDetected); Parainfluenza Virus 2 PCR Not Detected (NotDetected); Parainfluenza Virus 3 PCR Not Detected (NotDetected); Parainfluenza Virus 4 PCR Not Detected (NotDetected); Respiratory Syncytial VirusPCR Not Detected (NotDetected); Rhinovirus/Enterovirus PCR Not Detected (NotDetected)
--- NOTE | 2024-12-12 08:37 | CT Scan Report ---
Technique: Axial computed tomography images were obtained of the chest after the administration of intravenous contrast according to the CT angiogram protocol Findings: There is no definite sign of pulmonary embolism. There is mild atelectasis or scar along the right minor fissure and within the lingula. The lungs otherwise appear clear without infiltrate or mass. There is no pleural effusion or pneumothorax. There is no sign of pulmonary fibrosis or other diffuse interstitial process. No endobronchial lesion is seen There is no mediastinal, hilar, or axillary adenopathy. The thoracic aorta appears unremarkable with no sign of aneurysm or dissection. There is no pericardial effusion The visualized upper abdomen appears unremarkable. No fracture is seen. No focal osseous lesion is evident Impression: 1. No definite sign of pulmonary embolism 2. Essentially normal-appearing lungs ACT 112: Positive. There are findings on this exam that require communication between the performing entity and the patient following Patient Test Result Information Act ([place] ACT 112) guidelines. Electronically signed by Bolivar Cruz 12-12-2024 08:37 AM
--- NOTE | 2024-12-12 10:06 | History & Physical Report ---
Date of Service December 12, 2024 Assessment & Plan (1) Hypoxia: (2) Dyspnea: (3) Hypertension: (4) Diastolic dysfunction: Plan 79-year-old woman with hypertension who came to the ED with new onset of dyspnea, she was tachypneic with a respiratory rate between 26 and 30 in the ED and hypoxic with O2 sat 88% on room air. thorough ED workup did not reveal an explanation for her hypoxia and dyspnea. Notable for leukocytosis, normal procalcitonin, elevated D-dimer, normal high-sensitivity troponin, negative respiratory bio fire assay. EKG with incomplete right bundle branch block which is chronic. Chest x-ray was clear and CTA of chest read as negative for PE with normal pulmonary parenchyma. [facility], she does not have any known cardiac or pulmonary disease and is not wheezing. Differential diagnosis includes pulmonary embolism despite negative chest CTA. heart failure though does not appear volume overloaded. extremely early pulmonary infection or aspiration pneumonitis, however, would still expect to see parenchymal abnormality on chest CT. acute valvular dysfunction, pulmonary hypertension, pericardial effusion. Anxiety/hyper ventilation - though does not explain hypoxia. medication side effectsreviewed her meds in the external pharmacy database and none of them are new and none of them are particularly known to cause dyspnea to my knowledge. # Dyspnea and hypoxia, unexplained - ordered one-time dose of enoxaparin 1 mg/kg subcu in case of pulmonary embolism - TTE with bubble study, lower extremity duplex - TTE unrevealing, see below. Duplex negative for DVT - repeat high-sensitivity troponin and check BNP - trop negative and BNP 102. Normal CVP on Echo room air ABG to confirm whether there is actually hypoxia - failed attempt, venous blood obtained - monitor for fever and cough, repeat procalcitonin in a.m., no antibiotics for now TTE 12/12 reviewed - normal LVEF 65-70%, no rwma's, mild MR, normal RV. Grade I diastolic dysfunction. No TR or pulmonary hypertension noted. IVC collapsible indicating normal RA pressure of 3mm Hg. This is a puzzling presentation. She is clearly dyspneic and is not anxious, it came on acutely. The CTA report simply says "no definite sign of pulmonary embolism" without comment on the quality of the study. Clinically remains concerning for PE, perhaps a small one, there is maybe a 10% chance of this. Unfortunately a staff radiologist is not available right now to over-read the films. I will continue anticoagulation pending further information since my suspicion is fairly high and we lack an alternate explanation. Also consider acute diastolic heart failure - negative predictive value of the collapsible IVC is 80-90% (assuming pretest probability of pulmonary edema is 30-50%). the BNP of 102 is more or less indeterminate. consider trial of IV lasix. Anxiety/hyperventilation still possible - sats were 95% on room air when I saw her. Neurologic cause like brainstem stroke or lesion seems unlikely. # hypertensioncontinue amlodipine, olmesartan # hyperlipidemiacontinue atorvastatin DVT ppx - anticoagulated History of Present Illness Chief Complaint: shortness of breath Primary Care Provider: Matthew Rodriguez 79 y/o with hypertension presented to the ED with dyspnea and hypoxia. She was in her USOH when she woke up at 4 am to urinate. Dyspnea did not wake her up. She had abrupt onset of shortness of breath on her way back to bed and it has persisted. She has had no chest or upper back pain. No cough, sputum, fever/chills or sick contacts. She sees Dr. Kwok yearly for a murmur and routine visit is scheduled 48h from now. She has no hx of pulmonary disease. I reviewed last available primary care note which is from 2021 there is an (undated) Echo report within the PCP note - EF 65%, grade I diastolic dysfunction, mild MR, mild-mod TR, mild pulmonary hypertension. She has had no leg edema but has 4x nocturia and has noticed increase in abdominal girth and 10# weight gain since winter. No personal or family hx of VTE. No recent travel or surgeries. She has some right leg pain but always has that related to her back problems. No calf/leg swelling. I reviewed the pharmacy database and no recent medication changes. She is not anxious. Son at bedside corroborated and provided additional history - active, walks, gardens. She lives in an independent [facility]. Allergies Allergy/AdvReac Type Severity Reaction Status Date / Time simvastatin Allergy Intermediate TICKLING Verified 12/12/24 08:10 THROAT lisinopril Allergy Unknown TICKLY Verified 12/12/24 08:10 THROAT Home Medications Medication Instructions Recorded Confirmed Type amlodipine 5 mg tablet 5 mg PO QPM 08/12/18 12/12/24 History atorvastatin 40 mg tablet 20 mg PO QPM 08/12/18 12/12/24 History olmesartan 40 mg tablet 40 mg PO DAILY 11/01/22 12/12/24 History vibegron 75 mg tablet (Gemtesa) 75 mg PO DAILY #90 tabs 12/11/24 12/12/24 Rx calcium carbonate 500 mg PO DAILY 12/12/24 12/12/24 History cholecalciferol (vitamin D3) 25 25 mcg PO DAILY 12/12/24 12/12/24 History mcg (1,000 unit) tablet (Vitamin D3) multivitamin 1 tab PO DAILY 12/12/24 12/12/24 History omega 3-onv-evi-fish oil 1,200 mg 1 cap PO DAILY 12/12/24 12/12/24 History (144 mg-216 mg) capsule (Fish Oil) Past Med/Surg History Problem List Hypoxia (Acute) Dyspnea (Acute) Nocturia History of breast cancer 2016 Overactive bladder Carpal tunnel syndrome (Acute) Diastolic dysfunction (Acute) Mild aortic sclerosis (Acute) Mitral valve prolapse (Acute) Scoliosis (Acute) JIMBO (acute kidney injury) (Acute) Chest pain (Acute) HTN (hypertension) (Chronic) Medical History History of uterine leiomyoma Osteoarthritis Osteopenia GERD (gastroesophageal reflux disease) History of melanoma Cardiac murmur Hypertension Hyperlipidemia Basal cell carcinoma Surgical History Status post repair of complex wound (~08/2018) right nasal ala wound primary closure- Dr. Nguyen History of cataract surgery History of anesthesia reaction "hyperactive" after colonoscopy History of tonsillectomy History of adenoidectomy Hx of lumpectomy RT, 2016 History of breast biopsy RT History of colonoscopy History of basal cell carcinoma (BCC) excision FACE/BACK History of melanoma excision UPPER ARM Family History Sister Family history of reaction to anesthesia hallucinations Mother Alzheimer disease Family/Other Breast cancer Ovarian cancer Father Coronary heart disease Myocardial infarction Denies family history of Prostate cancer Colorectal cancer Social History Smoking Status: Never smoker Second Hand Exposure: Yes (previous exposure in the workplace); Do You Dip or Chew Tobacco: No; Hx Alcohol Use: Yes Alcohol type: wine Hx Substance Use: No Preferred Language: [place] Communication Ability: Effective Roping Tender Required: No Beliefs That Will Affect Care: None Current Living Situation: Alone current occupational status: retired Feels Safe at Home: Yes caffeine: Yes Dental Care, Regularly: Yes Seatbelt Use: always Sunscreen Use: Yes Assistive Devices: Glasses Review of Systems Review of Systems: All systems reviewed & are unremarkable except as noted in HPI & below Physical Exam Physical Exam: Last 24h vitals reviewed GEN: no acute distress, lying almost flat in bed HEENT: pupils equal, sclerae anicteric, moist MM RESP: tachypneic and mildly labored, mild bilateral anterior crackles, bilateral basilar crackles, no wheezing CV: reg with systolic murmur and no JVD ABD: soft/nt/nd +BT : no dexter SKIN: warm and dry, no generalized rashes EXT: no LE edema, wwp NEURO: AOx person, place, and situation. Face symmetric, speech normal, moves 4 ext spontaneously and equally Results & Data Results & Data Vital Signs (Past 12 Hours) Vital Signs Temp Pulse Resp BP Pulse Ox O2 Del Method O2 Flow Rate 12/12/24 09:30 87 28 H 111/70 96 Nasal Cannula 3 12/12/24 09:03 84 26 H 115/72 96 Nasal Cannula 3 12/12/24 08:00 89 26 H 127/76 96 Nasal Cannula 3 12/12/24 07:30 110/81 12/12/24 07:00 89 24 139/80 94 Nasal Cannula 3 12/12/24 06:30 88 L 0 12/12/24 06:28 99 H 12/12/24 06:28 36.4 C L 90 30 H 155/112 H 88 L Room Air Laboratory Results white blood count 16, not anemic BMP notable for potassium 3.6, BUN elevated at 28 creatinine 0.8 GFR 71 LFTs unremarkable lipase is 86 which is minimally elevated above reference range and not likely significant procalcitonin was normal, high-sensitivity troponin normal, D-dimer elevated at 1460 urinalysis negative respiratory bio fire negative TSH 4.8 with normal T4 Diagnostic Findings personally reviewed chest x-ray film and it is clear CT pulmonary angiogram read as negative for pulmonary embolism, atelectasis in the right minor fissure. I personally reviewed the chest CT films agree the parenchyma appears normal the atelectasis is not impressive ECG Additional Comments: personally reviewed EKG tracing and is sinus rhythm there is evidence of possible LVH and an incomplete right bundle branch block. Reviewed old EKG from 2019 and the incomplete right bundle branch block is present at that time as well. PG Care Time/CCT Total # of Minutes Spent Total Time Spent with Patient: Total time spent is greater than 50% in coordination of care (as documented) at patient's floor/unit and/or counseling patient: Coding Level of Care Code 62342 INT INP/OBS CARE 3/75MIN Diagnoses Hypoxia R09.02 Dyspnea R06.00 Hypertension I10 Diastolic dysfunction I51.89
[2024-12-12] MEDS ORDERED: ENOXAPARIN 1 MG/KG SQ STA (10:18)
[2024-12-12] MEDS ORDERED: ENOXAPARIN INJ 60 MG/0.6 ML SYR SQ STA (10:24)
--- NOTE | 2024-12-12 11:44 | Electrocardiogram Report ---
Test Reason : Blood Pressure : */* mmHG Vent. Rate : 93 BPM Atrial Rate : 93 BPM P-R Int : 184 ms QRS Dur : 96 ms QT Int : 356 ms P-R-T Axes : 69 -69 71 degrees QTcB Int : 442 ms Normal sinus rhythm with sinus arrhythmia Left axis deviation Incomplete right bundle branch block Minimal voltage criteria for LVH, may be normal variant Septal infarct (cited on or before 11-Sep-2014) Abnormal ECG When compared with ECG of 07-Aug-2018 12:13, No significant change was found Confirmed by Thony Randolph ([id number]) on 12/12/2024 11:43:33 AM Referred By: Mateo Parker Confirmed By: Thony Randolph
--- NOTE | 2024-12-12 11:51 | XCELERA ---
[id number]
--- NOTE | 2024-12-12 12:36 | Ultrasound Report ---
Clinical History: Shortness of breath Technique: Venous ultrasound evaluation was performed utilizing grayscale, color Doppler and wave form evaluation. Images were also obtained with and without compression Findings: The bilateral common femoral, superficial femoral, popliteal, and visualized calf veins demonstrate normal anechoic lumens with full compressibility. Normal flow is seen on color Doppler images. Expected waveforms were produced with augmentation maneuvers Impression: No evidence of deep venous thrombosis Electronically signed by Bolivar Cruz 12-12-2024 12:36 PM
[2024-12-12] MEDS ORDERED: POLYETHYLENE (MIRALAX) 17 GM PACK PO PRN (12:43)
[2024-12-12] MEDS ORDERED: MELATONIN 3 MG TAB PO PRN (12:43)
[2024-12-12] MEDS ORDERED: MAGNESIUM HYDROXIDE SUSP 30 ML UDC PO PRN (12:43)
[2024-12-12] MEDS ORDERED: ONDANSETRON INJ 2 MG/ML 2 ML VIAL IV PRN (12:43)
[2024-12-12] MEDS ORDERED: ALUMINUM/MAGNESIUM SUSP 30 ML UDC PO PRN (12:43)
[2024-12-12] MEDS: APIXABAN 5 MG TABLET PO SCH (14:37)
--- NOTE | 2024-12-12 15:17 | Communication Note ---
Date of Service: December 12, 2024 Dyspnea a little better but was very dyspneic after getting up and using restroom and O2 sats dropped to 85%. Recovered quickly sitting in bed with O2 3L On handheld ultrasound no obvious ascites, pulmonary B lines present in 2 zones bilaterally suggests pulmonary edema. -trial lasix 20 mg IV x 1 with potassium 40 meq
[2024-12-12] MEDS ORDERED: LACTASE 3000 UNIT TAB PO PRN (15:38)
[2024-12-12] MEDS: POTASSIUM CHLORIDE CRTAB 20 MEQ TABCR PO ONE (15:46)
[2024-12-12] MEDS: FUROSEMIDE INJ 20 MG/2 ML VIAL IV ONE (15:46)
[2024-12-12] MEDS: ATORVASTATIN 20 MG TAB PO SCH (20:37)
[2024-12-12] MEDS: amLODIPine BESYLATE 5 MG TAB PO SCH (20:37)
[2024-12-13 06:19] LABS: Basophils # (auto) 0.07 K/uL (0.00-0.20); Basophils % (auto) 0.4 %; Eosinophils # (auto) 0.28 K/uL (0.00-0.50); Eosinophils % (auto) 1.6 %; Hematocrit (blood only) 39.2 % (37.0-47.0); Hemoglobin 13.1 g/dl (12.0-16.0); Immature Granulocytes # (auto) 0.08 K/uL (0.01-0.20); Immature Granulocytes % (auto) 0.5 %; Lymphocytes # (auto) 1.47 K/uL (1.20-3.40); Lymphocytes % (auto) 8.5 %; Mean Corpuscular Hemoglobin 30.4 pg (25.0-34.0); Mean Corpuscular Hgb Conc 33.4 g/dL (32.0-36.0); Mean Platelet Volume 10.2 fL (9.4-12.4); Monocytes # (auto) 0.88 K/uL (0.11-0.59); Monocytes % (auto) 5.1 %; Neutrophils # (auto) 14.48 K/uL (1.40-6.50); Neutrophils % (auto) 83.9 %; Platelet Count 209 K/uL (130-400); RDW Coefficient of Variation 13.2 % (11.5-14.5); Red Blood Count 4.31 M/uL (4.20-5.40); White Blood Count 17.26 K/ul (4.8-10.8)
[2024-12-13 06:41] LABS: BUN Creatinine Ratio 24.2 (10-20); Calcium 9.1 mg/dl (8.6-10.3); Creatinine Clr Calc Pharmacy 50.4 ml/min; Potassium 3.7 mmol/L (3.5-5.1)
[2024-12-13 07:42] VITALS: BP 130/71; RESP 16; TEMP 98.2; O2SAT 91
[2024-12-13] MEDS: ACETAMINOPHEN 325 MG TAB PO PRN (08:46)
[2024-12-13] MEDS: FUROSEMIDE INJ 20 MG/2 ML VIAL IV ONE (08:46)
[2024-12-13] MEDS: POTASSIUM CHLORIDE CRTAB 20 MEQ TABCR PO ONE (08:46)
[2024-12-13] MEDS: LOSARTAN POTASSIUM 50 MG TAB PO SCH (08:47)
[2024-12-13] MEDS: VIBEGRON 75 MG TAB PO SCH (08:47)
--- NOTE | 2024-12-13 10:12 | Discharge Summary ---
Discharge Summary Date of Service December 13, 2024 Principal Dx & Hospital Course #1 = Principal Diagnosis (1) Diastolic heart failure: (2) Mitral regurgitation: (3) Hypertension: (4) Overactive bladder: Plan 79-year-old woman with hypertension who came to the ED with abrupt onset of dyspnea in the night, she was tachypneic with a respiratory rate between 26 and 30 in the ED and hypoxic with O2 sat 88% on room air. With ambulation she went down to 85%. thorough ED workup did not reveal an explanation for her hypoxia and dyspnea. Notable for leukocytosis, normal procalcitonins, elevated D-dimer, normal high-sensitivity troponins, negative respiratory bio fire assay. BNP was 102. EKG with incomplete right bundle branch block which is chronic. Chest x- ray was clear and CTA of chest read as negative for PE with normal pulmonary parenchyma. She does not have any known pulmonary disease and is not wheezing. An old Echo in PCP notes had grade I diastolic dysfunction, MR and TR - not severe. She does feel that she has had increased abdominal girth and has had a ten pound weight gain over past months despite no significant leg edema. She does have nocturia 4x a night. She has sleep study planned this summer. Differential diagnosis included pulmonary embolism despite negative chest CTA. heart failure though did not appear obviously volume overloaded. early pulmonary infection or aspiration pneumonitis, however, would still expect to see parenchymal abnormality on chest CT. acute valvular dysfunction, pulmonary hypertension, pericardial effusion. Anxiety/hyper ventilation - though does not explain hypoxia. medication side effectsreviewed her meds in the external pharmacy database and none of them are new and none of them are particularly known to cause dyspnea to my knowledge. Obtained TTE - normal LVEF 65-70%, no rwma's, mild MR, normal RV. Grade I diastolic dysfunction. No TR or pulmonary hypertension noted. IVC collapsible indicating normal RA pressure of 3mm Hg LE duplex was negative for DVT Bedside ultrasound was notable for no obvious ascites, B lines present on multiple views of lungs consistent with pulmonary edema. She did have bilateral crackles on lung exam though JVP did not appear elevated. She responded extremely well to diuresis and after one dose of lasix 20 mg IV her symptoms resolved and she was no longer hypoxic. Crackles on lung exam improved. She received second dose of IV lasix this am. BMP remained stable # Acute diastolic heart failure - may need intermittent or PRN lasix. Rx 40 mg three times a week with potassium to start, further adjustment per assembler show motor - contiue other meds - ARB, amlodipine. Consider stopping amlodipine if thought to be contributing to fluid overload - she has cardiology appt tomorrow with Dr. Kwok # Leukocytosis - WBC remained 16-17K. No old labs in our system. No S/Sx of infection as discussed above. No fever. UA negative. - follow up in primary care for repeat CBC at interval, further evaluation if nonresolving # hypertensioncontinue amlodipine, olmesartan # hyperlipidemiacontinue statin 12/13/24 05:45 12/13/24 05:45 Admission HPI Per Admitting Provider 79 y/o with hypertension presented to the ED with dyspnea and hypoxia. She was in her USOH when she woke up at 4 am to urinate. Dyspnea did not wake her up. She had abrupt onset of shortness of breath on her way back to bed and it has persisted. She has had no chest or upper back pain. No cough, sputum, fever/chills or sick contacts. She sees Dr. Kwok yearly for a murmur and routine visit is scheduled 48h from now. She has no hx of pulmonary disease. I reviewed last available primary care note which is from 2021 there is an (undated) Echo report within the PCP note - EF 65%, grade I diastolic dysfunction, mild MR, mild-mod TR, mild pulmonary hypertension. She has had no leg edema but has 4x nocturia and has noticed increase in abdominal girth and 10# weight gain since winter. No personal or family hx of VTE. No recent travel or surgeries. She has some right leg pain but always has that related to her back problems. No calf/leg swelling. I reviewed the pharmacy database and no recent medication changes. She is not anxious. Son at bedside corroborated and provided additional history - active, walks, gardens. She lives in an [facility] at [facility]. Discharge Exam Last 24h vitals reviewed GEN: no acute distress, sitting in chair looks well HEENT: pupils equal, sclerae anicteric, moist MM RESP: normal WOB. Anterior crackles resolved. Bibasilar crackles 1/[address] up improved. No wheezing CV: reg with systolic murmur and no JVD ABD: soft/nt/nd +BT : no dexter SKIN: warm and dry, no generalized rashes EXT: no LE edema - ankle skin now loose, wwp NEURO: AOx person, place, and situation. Face symmetric, speech normal, moves 4 ext spontaneously and equally Discharge Plan Discharge Items Patient Disposition: Home - Self-Care Reason For Visit: ACUTE DYSPNEA/HYPOXIA Discharge Diagnosis: Acute diastolic heart failure Activity: Resume your previous activity Non-emergency contact: Primary Care Provider and [employer] Call non-emergency contact if: you have any medication questions and your symptoms worsen Follow-up/Referrals: Matthew Rodriguez [Primary Care Provider] - Cristopher Kwok DO [Physician] - Diet: Low Sodium (2gm) Addtl Attending Provider Instructions: You were short of breath with low oxygen This was caused by fluid in your lung tissue (pulmonary edema) related to a condition called "diastolic heart failure" Your heart squeeze is normal and your valves work fine, but there is some stiffness of the muscle that makes it work less efficiently and that can cause fluid overload. You may need a diuretic (furosemide AKA lasix) two or three times a week on a schedule and/or as needed. You can work with your doctors to figure out the right dose for you. When you take lasix, also take a potassium supplement. I'll start with dosing lasix three times a week - take it in the morning. See Dr. Kwok tomorrow - he may want to adjust this dosing or adjust your other medications. Weigh yourself every morning and keep track. If you gain three or more pounds in a few days or five or more pounds in a week that is "water weight." Call your doctor for advice on adjusting your lasix dose. We considered a blood clot in the lungs (pulmonary embolism), but testing was negative for that and you had an excellent response to diuretic so I don't think we need to worry about a blood clot. I pasted your discharge summary below so that you can take this to Dr. Kwok tomorrow, in case the records don't get forwarded fast enough. It was a pleasure taking care of you in the hospital, Mahogany Ascencio MD [employer] Provider Instructions: Call your Primary Care doctor if any of the following symptoms or problems start or get worse: * Shortness of breath or difficulty breathing * Wake up at night short of breath * Chest pain * Cough * Swelling of your hands, feet, or legs * More fatigued or tired with your normal activity * Palpitations - sudden fast heart beats WEIGHT * Weigh yourself every morning after using the bathroom. * Use the same scale. * Wear the same amount of clothing. * Write your weight down on a chart. * Call your Primary Care doctor if you gain more than 2-3 pounds in 1-2 days. MEDICATIONS * Use this discharge instruction sheet for medication instructions. * Take your medications at the time your doctor ordered. * Do not skip a dose of your medicines. * If you miss a dose of medicine, take it as soon as possible, but DO NOT DOUBLE A DOSE. * Read your medicine information when you get home. * Know all of the side effects of your medicine. If in doubt, ask your pharmacist * Call your Primary Care doctor's office if you have any side effects. * Be sure all of your doctors know what medicine and herbs you take (including cold, flu, and herbal medicine). Take the following with you to your follow-up doctor appointments: * Weight Chart * Medication List * List of questions Do not drink excessive alcohol, beer or wine. Pending Studies at Discharge: No Stand-Alone Forms: [facility], Smoking Cessation Medications and DC Order Prescriptions: New furosemide 20 mg tablet See Rx Instructions .ROUTE .COMPLEX Qty: 60 0RF Rx Instructions: Take 2 tabs three days a week in the morning, or as directed. Take with potassium. potassium chloride 20 mEq packet See Rx Instructions .ROUTE .COMPLEX Qty: 60 0RF Rx Instructions: take 2 packets with each dose of lasix Continued Gemtesa 75 mg tablet 75 mg PO DAILY Qty: 90 1RF olmesartan 40 mg tablet 40 mg PO DAILY atorvastatin 40 mg Tablet 20 mg PO QPM amlodipine 5 mg Tablet 5 mg PO QPM multivitamin Tablet 1 tab PO DAILY calcium carbonate [Calcium 500] 500 mg calcium (1,250 mg) Tablet 500 mg PO DAILY cholecalciferol (vitamin D3) [Vitamin D3] 25 mcg (1,000 unit) Tablet 25 mcg PO DAILY omega 1-tze-eql-fish oil [Fish Oil] 1,200 (144-216) mg Capsule 1 cap PO DAILY Discharge Orders: Discharge Order (Routine); Ordered 12/13/24 Ordered By: Mahogany Ascencio Admission Data Admit Date/Time: 12/12/24 10:15 Attending Provider: Mahogany Ascencio Admit Provider: Mahogany Ascencio Primary Care Provider: Matthew Rodriguez Hospital Stay Data Diagnostic Imagining Performed 12/12/24 07:25 CT angio chest PE protocol Stat 12/12/24 10:12 US venous duplex leg [US venous doppler LE BI] Stat Chest X-Ray 12/12/24 06:49 EXAM: XR chest 1V portable CLINICAL HISTORY: sob. TECHNIQUE: Radiograph of chest was acquired. COMPARISON: None. FINDINGS: Right diaphragmatic hump Cardiomegaly noted. The lungs are clear and well-expanded with no pulmonary infiltrate or pleural effusion. No acute osseous abnormality. IMPRESSION: Right diaphragmatic hump Cardiomegaly noted. Electronically signed by Sanford Gallagher 12-12-2024 08:09 AM Chest CTA 12/12/24 07:25 Technique: Axial computed tomography images were obtained of the chest after the administration of intravenous contrast according to the CT angiogram protocol Findings: There is no definite sign of pulmonary embolism. There is mild atelectasis or scar along the right minor fissure and within the lingula. The lungs otherwise appear clear without infiltrate or mass. There is no pleural effusion or pneumothorax. There is no sign of pulmonary fibrosis or other diffuse interstitial process. No endobronchial lesion is seen There is no mediastinal, hilar, or axillary adenopathy. The thoracic aorta appears unremarkable with no sign of aneurysm or dissection. There is no pericardial effusion The visualized upper abdomen appears unremarkable. No fracture is seen. No focal osseous lesion is evident Impression: 1. No definite sign of pulmonary embolism 2. Essentially normal-appearing lungs ACT 112: Positive. There are findings on this exam that require communication between the performing entity and the patient following Patient Test Result Information Act ([place] ACT 112) guidelines. Electronically signed by Bolivar Cruz 12-12-2024 08:37 AM Venous Doppler Study 12/12/24 10:12 Clinical History: Shortness of breath Technique: Venous ultrasound evaluation was performed utilizing grayscale, color Doppler and wave form evaluation. Images were also obtained with and without compression Findings: The bilateral common femoral, superficial femoral, popliteal, and visualized calf veins demonstrate normal anechoic lumens with full compressibility. Normal flow is seen on color Doppler images. Expected waveforms were produced with augmentation maneuvers Impression: No evidence of deep venous thrombosis Electronically signed by Bolivar Cruz 12-12-2024 12:36 PM 12/13/24 12/12/24 Range/Units 05:45 10:33 WBC 17.26 H (4.8-10.8) K/ul RBC 4.31 (4.20-5.40) M/uL Hgb 13.1 (12.0-16.0) g/dl Hct 39.2 (37.0-47.0) % MCV 91.0 (80.0-100.0) fL MCH 30.4 (25.0-34.0) pg MCHC 33.4 (32.0-36.0) g/dL RDW Std Deviation 44.0 (36.4-46.3) fL RDW Coeff of Gilma 13.2 (11.5-14.5) % Plt Count 209 (130-400) K/uL MPV 10.2 (9.4-12.4) fL Immature Gran % (Auto) 0.5 % Neut % (Auto) 83.9 % Lymph % (Auto) 8.5 % Bandera % (Auto) 5.1 % Eos % (Auto) 1.6 % Baso % (Auto) 0.4 % Neut # (Auto) 14.48 H (1.40-6.50) K/uL Lymph # (Auto) 1.47 (1.20-3.40) K/uL Bandera # (Auto) 0.88 H (0.11-0.59) K/uL Eos # (Auto) 0.28 (0.00-0.50) K/uL Baso # (Auto) 0.07 (0.00-0.20) K/uL Immature Gran # (Auto) 0.08 (0.01-0.20) K/uL Sodium 138 (136-145) mmol/L Potassium 3.7 (3.5-5.1) mmol/L Chloride 104 (98-107) mmol/L Carbon Dioxide 28 (21-32) mmol/L Anion Gap 6 (3-11) BUN 16 (6-23) mg/dl Creatinine 0.66 (0.6-1.2) mg/dl Est Cr Clr Drug Dosing 50.4 ml/min eGFR 88.07 BUN/Creatinine Ratio 24.2 H (10-20) Glucose 96 (70-99(Fasting)) mg/dl Calcium 9.1 (8.6-10.3) mg/dl Troponin I High Sens 6.0 (0-14) pg/ml B-Natriuretic Peptide 102 H (0-100) pg/ml Procalcitonin 0.12 (0-0.5) ng/ml Pending Results Patient Have Any Pending Studies at Discharge: No Discharge Instructions Given to Patient (Per Discharging Provider) You were short of breath with low oxygen This was caused by fluid in your lung tissue (pulmonary edema) related to a condition called "diastolic heart failure" Your heart squeeze is normal and your valves work fine, but there is some stiffness of the muscle that makes it work less efficiently and that can cause fluid overload. You may need a diuretic (furosemide AKA lasix) two or three times a week on a schedule and/or as needed. You can work with your doctors to figure out the right dose for you. When you take lasix, also take a potassium supplement. I'll start with dosing lasix three times a week - take it in the morning. See Dr. Kwok tomorrow - he may want to adjust this dosing or adjust your other medications. Weigh yourself every morning and keep track. If you gain three or more pounds in a few days or five or more pounds in a week that is "water weight." Call your doctor for advice on adjusting your lasix dose. We considered a blood clot in the lungs (pulmonary embolism), but testing was negative for that and you had an excellent response to diuretic so I don't think we need to worry about a blood clot. I pasted your discharge summary below so that you can take this to Dr. Kwok tomorrow, in case the records don't get forwarded fast enough. It was a pleasure taking care of you in the hospital, Mahogany Ascencio MD Total Time Total Time Spent Total Time Spent (In Minutes): I personally spent: 35 minutes today on clinical care activities including: reviewing chart notes and vital signs reviewing labs examining and counseling the patient writing orders writing prescriptions, discharge instructions documentation Coding Level of Care Code 51068 INP/OBS DISCH >30 MIN Diagnoses Diastolic heart failure I50.30 Mitral regurgitation I34.0 Hypertension I10 Overactive bladder N32.81
[2024-12-13 10:22] VITALS: PULSE 76
[2024-12-19] MEDS ORDERED: APIXABAN 5 MG TABLET PO SCH (09:00)
== END 2024-12-13 11:00 | disposition home or self-care (01) ==
LOC: ED 06:24 → 2N 06:24